=== PATIENT | male | born 2000 | race Two or more races ===

== ENCOUNTER → 2025-03-24 | Outpatient (CLI) | payer MEDICARE, MEDICAID, SELFPAY ==
--- NOTE | 2025-03-24 10:51 | XR_ITS ---
Examination: PA lateral chest 2 views TECHNIQUE: Upright PA lateral chest 2 views Date and time: March 24, 2025 1132 hours INDICATIONS: Diagnosis coccidiomycosis FINDINGS: Reduced inspiratory effort Normal heart size No pneumonia or pulmonary edema IMPRESSION: No active disease
== END | disposition home or self-care (01) ==
PROVIDERS: PCP Nurse Practitioner Family; Referring Provider Nurse Practitioner Family; Visit Provider Nurse Practitioner Family
DX: B38.9 Coccidioidomycosis, unspecified (principal)
CPT/HCPCS: 71046